=== PATIENT | male | born 1955 | race Caucasian/White ===

== ENCOUNTER 2017-08-17 11:42 | Emergency (ER) | payer OTHER ==
[~2017-08-17] VITALS: Ht 180.3 cm; Wt 89.4 kg
[2017-08-17] MEDS ORDERED: JARDIANCE25 MG PO (12:07)
[2017-08-17] MEDS ORDERED: GLIPIZIDE 10 MG10 MG PO (12:07)
[2017-08-17] MEDS ORDERED: ASPIR 8181 MG PO (12:07)
[2017-08-17] MEDS ORDERED: JANUMET 50-1,01 EACH PO (12:07)
[2017-08-17] MEDS ORDERED: TYLENOL325 MG PO (12:15)
[2017-08-17] MEDS ORDERED: TRAMADOL 50 MG50 MG PO (13:06)
[2017-08-17 13:12] VITALS: BP 133/79
== END 2017-08-17 13:13 | disposition home or self-care (01) ==
LOC: M.ERS 11:42
DX: M79.671 Pain in right foot (principal); I10 Essential (primary) hypertension; E11.9 Type 2 diabetes mellitus without complications; E78.00 Pure hypercholesterolemia, unspecified; Z88.0 Allergy status to penicillin

== ENCOUNTER 2018-06-07 20:54 | Observation (INO) | payer OTHER ==
[~2018-06-07] VITALS: Ht 180.3 cm; Wt 88.0 kg
[~2018-06-07 20:54] MED LIST: AMLODIPINE BESY10 MG PO; ASPIR 8181 M1 PO; ASPIR 8181 MG PO; ATORVASTATIN CA40 MG PO; BRILINTA90 MG PO; COREG6.25 MG PO; GLIPIZIDE 10 MG10 MG PO; JANUMET 50-1,01 EACH PO; JARDIANCE25 MG PO; MICARDIS 20MG T20 M1 PO; NITROGLYCERIN0.4 MG SUBLING; TRAMADOL 50 MG50 MG PO; TYLENOL325 MG PO
[2018-06-07 20:55] VITALS: BP 93/64
[2018-06-07] MEDS ORDERED: BUSPIRONE HCL10 MG PO (21:03)
[2018-06-07] MEDS ORDERED: FISH OIL 1,001000 M2 PO (21:04)
[2018-06-07] MEDS ORDERED: HYDROCHLOROTHIA25 M2 PO (21:04)
[2018-06-07] MEDS ORDERED: CENTRUM SILVER1 EAC2 PO (21:07)
[2018-06-07] MEDS ORDERED: LANTUS SUBQ (21:07)
[2018-06-07 21:18] LABS: ABSOLUTE BASOPHILS 0.1 thou/uL (0.0-0.2); ABSOLUTE EOSINOPHILS 0.6 thou/uL (0.0-0.7); ABSOLUTE LYMPHOCYTES 2.4 thou/uL (0.8-5.3); ABSOLUTE NEUTROPHILS 4.7 thou/uL (1.6-8.1); BASOPHILS 1.4 %; EOSINOPHILS 6.9 %; HEMATOCRIT 40.5 % (42.0-52.0); HEMOGLOBIN 13.9 gm/dL (14.0-18.0); LYMPHOCYTES 27.3 %; MCH 29.7 pg (26.0-34.0); MCHC 34.2 g/dL (28.0-37.0); MCV 86.6 fL (80.0-100.0); MONOCYTES 11.2 %; MPV 7.9 fl. (7.2-11.1); NUCLEATED RBCS 0 /100WBC; PLATELET COUNT* 304 thou/uL (150-400); POLYS 53.2 %; RBC 4.67 mil/uL (4.50-6.00); WBC 8.9 thou/uL (4.0-11.0)
[2018-06-07 21:27] LABS: ANION GAP 10 mmol/L (7-16); BUN 34 mg/dL (7-18); CALCIUM 8.9 mg/dL (8.5-10.1); CHLORIDE 94 mmol/L (98-107); CO2 25 mmol/L (21-32); CREATININE 1.1 mg/dL (0.6-1.3); GLUCOSE 216 mg/dL (70-99); POTASSIUM 3.8 mmol/L (3.5-5.1); SODIUM 129 mmol/L (136-145)
[2018-06-07 21:32] LABS: APTT 25.1 Seconds (25.0-31.3); INR 1.1; PROTIME 11.2 Seconds (9.20-11.50)
[2018-06-07 21:38] LABS: ALBUMIN 3.5 g/dL (3.4-5.0); ALKALINE PHOSPHATASE 82 U/L (46-116); NT-PRO BRAIN NAT PEPTIDE 65 pg/mL (<300); SGOT 47 U/L (15-37); SGPT 105 U/L (30-65); TOTAL BILIRUBIN 0.4 mg/dL (<0.1-1.0); TOTAL PROTEIN 7.6 g/dL (6.4-8.2); TROPONIN-I LEVEL <0.06 ng/mL (<0.06)
[2018-06-07 23:00] VITALS: BP 114/66
[2018-06-07 23:30] VITALS: BP 131/74
--- NOTE | 2018-06-08 04:32 | NUR ---
PT ARRIVED ON UNIT FROM ER AT 2320 ASSISTED TO BED ORIENTED TO SURROUNDINGS VS AND ASSESSMENT STABLE. PT DENIED ANY COMPLAINTS AND SLEPT THROUGH THE NIGHT. NSR ON THE MONITOR. WILL CONTINUE PLAN OF CARE.
[2018-06-08 04:47] VITALS: BP 103/63
[2018-06-08 08:00] VITALS: BP 108/71
--- NOTE | 2018-06-08 08:00 | NUR ---
ASSUMED PT CARE AT 0700, PT LYING IN BED, CALL LIGHT IN REACH, AT BEDSIDE. TOBACCO STRIPPER HAND TRACING SINUS RHYTHM, PT DENIES PAIN OR SOA. PT REMAINS NPO AT THIS TIME, CARDIOLOGY TO CONSULT. WILL CONT POC.
--- NOTE | 2018-06-08 09:10 | NUR ---
Pt is A&O. Resides at home with his . Supportive family that is involved in POC. Normally active and independent. Recently dc from hospital at the end of April post stent placement. No DME. No hx of HH or SNF. Goal is home at dc. Cardiology following.
--- NOTE | 2018-06-08 10:31 | EKG ---
[place] [address] ELECTROCARDIOGRAM REPORT Name: LAWRENCE UNDERWOOD Room: [address]R.#: [id number] Admission: 06/07/18 Attend Phys: Michael Crowell MD Discharge: Date of : 59 Report #: [id number] THIS REPORT FOR: //name// [facility] ED Test Date: 2018-06-07 Test Time: 20:56:29 Pat Name: LAWRENCE UNDERWOOD Department: Room: [facility] Gender: M Netting Weaver: MS : 1955 Requested By: Adenike Nicole Order Number: [id number] MD: Shan Mcintosh Measurements Intervals [place] Rate: 72 P: 23 MT: 183 QRS: 11 QRSD: 102 T: -12 QT: 390 QTc: 427 Interpretive Statements Sinus rhythm Inferior infarct, old Baseline wander in lead(s) III,aVL,aVF Compared to ECG 05/26/2018 08:04:16 no change Electronically Signed On 06-08-2018 10:31:22 EARLY CHILDHOOD ASSISTANT by Shan Mcintosh [email or web address] <ELECTRONICALLY SIGNED> By: Shan Mcintosh MD, FACC 06/08/18 1031 55 55 Shan Mcintosh MD, [facility] /EPI
[2018-06-08 11:19] VITALS: BP 109/70
[2018-06-08 11:30] LABS: ANION GAP 9 mmol/L (7-16); BUN 24 mg/dL (7-18); CALCIUM 9.3 mg/dL (8.5-10.1); CHLORIDE 97 mmol/L (98-107); CO2 26 mmol/L (21-32); CREATININE 0.9 mg/dL (0.6-1.3); GLUCOSE 100 mg/dL (70-99); MAGNESIUM 2.2 mg/dL (1.8-2.4); POTASSIUM 3.7 mmol/L (3.5-5.1); SODIUM 132 mmol/L (136-145); TROPONIN-I LEVEL <0.06 ng/mL (<0.06)
--- NOTE | 2018-06-08 15:02 | EKG ---
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
[2018-06-08 15:32] VITALS: BP 101/55
--- NOTE | 2018-06-08 16:00 | NUR ---
PT DISCHARGED HOME WITH AND NURSING STAFF VIA WHEELCHAIR. IV AND SR VICE PRESIDENT REMOVED, HOURLY ROUNDING COMPLETED. PT EDUCATED ON ALL DISCHARGE INSTRUCTIONS INCLUDING MEDICATIONS AND FOLLOW UP APPTS, PT STATES UNDERSTANDING.
[2018-06-08 17:01] VITALS: BP 101/55
--- NOTE | 2018-06-09 09:28 | CON ---
[address] [address] CONSULTATION Name: LAWRENCE UNDERWOOD Room: [address] Charlette Miller#: [id number] Admission: 06/07/18 Attend Phys: Michael Crowell MD Discharge: 06/08/18 Date of : 59 Report #: [id number] THIS REPORT FOR: //name// CC: Michael Mcintosh Akanksha Dorita RUIZ DATE OF SERVICE: 06/08/2018 HISTORY OF PRESENT ILLNESS: The patient is a 63-year-old white male who I was asked to see in the hospital today after he complained of jaw pain. The patient had no previous history of heart disease. He does have a long history of hypertension, diabetes, and hyperlipidemia. He presented to [facility] on 05/22/2018 with an acute inferior STEMI. I saw him on an emergent basis and performed an urgent cardiac catheterization from the right femoral artery. Arteriogram showed a 99% stenosis distal codominant circumflex, 90% narrowing in the mid LAD, 80% narrowing of the distal PDA of the right coronary artery. Ejection fraction was 60%. I then placed a single drug-eluting stent in the distal circumflex. He returned 3 days later and I electively placed a drug-eluting stent in the mid LAD. In addition to his amlodipine and Lipitor, he was started on Plavix and Coreg. He was also started on Brilinta twice a day. He returned to see my nurse practitioner last week. The patient was felt to be doing well. However, over the weekend the patient developed lightheadedness, his blood pressure was low. He stopped taking his amlodipine. Yesterday, the patient was home, he felt a sharp pain in his jaw, felt some tingling in his left hand, felt a sharp pain in his chest. Denied any shortness of breath, diaphoresis. He called EMS who brought here to [facility] and admitted. He denied any fever, bleeding, palpitation or syncope. PAST MEDICAL HISTORY: He has had no major surgical procedures. CURRENT MEDICATIONS: Amlodipine, which he recently stopped, aspirin, Lipitor, carvedilol, Jardiance, Janumet, Micardis, Brilinta. ALLERGIES: HE HAS AN ALLERGY TO PENICILLIN. FAMILY HISTORY: Negative for heart disease. SOCIAL HISTORY: He is . He and his live in [place]. 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 No smoking. Rarely drinks alcohol. REVIEW OF SYSTEMS: He has had no history of stroke, asthma, peptic ulcer disease, liver disease, kidney disease, cancer, psychiatric illness, [place] [address] CONSULTATION Name: LAWRENCE UNDERWOOD Room: [address] Charlette Miller#: [id number] Admission: 06/07/18 Attend Phys: Michael Crowell MD Discharge: 06/08/18 Date of : 59 Report #: [id number] PHYSICAL EXAMINATION: GENERAL: Revealed a middle-aged male lying in bed. He appeared in no distress. VITAL SIGNS: His blood pressure 110/70, pulse 60. He is afebrile. HEENT: He is anicteric. Conjunctivae pink. Mucous membranes moist. NECK: Veins nondistended. No carotid bruits. Neck supple. CHEST: Clear to auscultation. CARDIAC: Regular rate and rhythm. ABDOMEN: Soft, nontender. EXTREMITIES: Had no edema. Posterior tibial pulse 2+ bilaterally. SKIN: Warm, dry. NEUROLOGIC: Nonfocal. LYMPH: No adenopathy. MUSCULOSKELETAL: No joint effusion. DIAGNOSTIC DATA: His ECG showed a sinus rhythm. There was no ST or T-wave changes noted. His workup in the Emergency Room last night, he had a portable chest x-ray that showed normal heart size, clear lung la. LABORATORY DATA: Sodium 132, creatinine 0.9, glucose 100. His troponin 0.06. White blood cell count 8.9, hemoglobin 13.9. IMPRESSION AND RECOMMENDATIONS: 1. Jaw pain. Atypical for angina. Suspect noncardiac. 2. Tingling of his left hand. No evidence of acute coronary syndrome. 3. Recent stenting of the distal circumflex and left anterior descending. Continue aspirin and Brilinta. 4. Hypertension. Continue beta blockers. Because of low blood pressure I would discontinue Norvasc. 5. Hyperlipidemia. The patient is on a statin drug. 6. Diabetes. At this time, I think it is reasonable to discharge the patient from the hospital. He is scheduled to see me in the clinic in several weeks for followup. <ELECTRONICALLY SIGNED> By: Shan Mcintosh MD, FACC 06/09/18 0928 1532 [id number] Mcintosh MD, FACC /nt
== END 2018-06-08 17:54 | disposition home or self-care (01) ==
LOC: M.ERS 20:54 → M.TBA-ER 22:01 → M.2W 22:01
PROVIDERS: Internal Medicine; Personal Emergency Response Attendant; ADMIT Internal Medicine
DX: I25.118 Atherosclerotic heart disease of native coronary artery with other forms of angina pectoris (principal); I12.9 Hypertensive chronic kidney disease with stage 1 through stage 4 chronic kidney disease, or unspecified chronic kidney disease; E11.22 Type 2 diabetes mellitus with diabetic chronic kidney disease; N18.2 Chronic kidney disease, stage 2 (mild); F32.9 Major depressive disorder, single episode, unspecified; E78.5 Hyperlipidemia, unspecified; E87.1 Hypo-osmolality and hyponatremia; R68.84 Jaw pain; Z79.4 Long term (current) use of insulin; Z79.899 Other long term (current) drug therapy; Z79.82 Long term (current) use of aspirin

== ENCOUNTER → 2018-07-21 | Outpatient (CLI) | payer OTHER ==
[~2018-07-21] MED LIST changes: +BUSPIRONE HCL10 MG PO; +CENTRUM SILVER1 EAC2 PO; +FISH OIL 1,001000 M2 PO; +HYDROCHLOROTHIA25 M2 PO; +LANTUS SUBQ
--- NOTE | 2018-07-21 15:40 | 2DMMODE ---
[place] [address] 2 D/M-MODE ECHOCARDIOGRAM Name: JOSE UNDERWOOD Room: [facility]#: [id number] Admission: 07/21/18 Attend Phys: Nereyda Hawley Discharge: Date of : 59 Date of Service: 07/21/18 1540 Report #: [id number] THIS REPORT FOR: //name// APPROVED REPORT Study performed: 07/21/2018 08:23:09 EXAM: Comprehensive 2D, Doppler, and color-flow Echocardiogram Patient Location: Out-Patient BSA: 2.09 HR: 74 bpm BP: 116/75 mmHg Other Information Study Quality: Good Indications CAD 2D Dimensions IVSd: 10.90 (7-11mm) LVOT Diam: 20.48 (18-24mm) LVDd: 42.21 mm PWd: 10.01 (7-11mm) Ascending Ao: 31.10 (22-36mm) LVDs: 23.46 (25-40mm) Aortic Root: 28.78 mm Volumes Left Atrial Volume (Systole) LA ESV Index: 17.80 mL/m2 Aortic Valve AoV Peak Hieu.: 1.08 m/s AO Peak Gr.: 4.63 mmHg LVOT Max P.18 mmHg AO Mean Gr.: 2.55 mmHg LVOT Mean P.09 mmHg LVOT Max V: 1.02 m/s AO V2 VTI: 20.19 cm LVOT Mean V: 0.66 m/s BRAXTON (VTI): 3.58 cm2 LVOT V1 VTI: 21.96 cm Mitral Valve E/A Ratio: 0.93 MV Decel. Time: 192.69 ms MV E Max Hieu.: 0.59 m/s MV PHT: 55.88 ms MVA (PHT): 3.94 cm2 [place] [address] 2 D/M-MODE ECHOCARDIOGRAM Name: JOSE UNDERWOOD Room: [facility]#: [id number] Admission: 07/21/18 Attend Phys: Nereyda Hawley Discharge: Date of : 59 Date of Service: 07/21/18 1540 Report #: [id number] TDI E/Lateral E': 5.36 E/Medial E': 7.38 Medial E' Hieu.: 0.08 m/s Lateral E' Hieu.: 0.11 m/s Pulmonary Valve PV Peak Hieu.: 0.93 m/s PV Peak Gr.: 3.47 mmHg Left Ventricle The left ventricle is normal size. There is normal LV segmental wall motion. There is normal left ventricular wall thickness. Left ventricular systolic function is normal. LVEF is 55-60%. Transmitral Doppler flow pattern suggests impaired LV relaxation. Right Ventricle The right ventricle is normal size. The right ventricular systolic function is normal. Atria The left atrium size is normal. The right atrium size is normal. Aortic Valve The aortic valve is normal in structure. No aortic regurgitation is present. There is no aortic valvular stenosis. Mitral Valve The mitral valve is normal in structure. There is no mitral valve regurgitation noted. No evidence of mitral valve stenosis. Tricuspid Valve The tricuspid valve is normal in structure. There is no tricuspid valve regurgitation noted. Pulmonic Valve The pulmonary valve is normal in structure. There is no pulmonic valvular regurgitation. Great Vessels The aortic root is normal in size. IVC is normal in size and collapses >50% with inspiration. Pericardium There [place] [address] 2 D/M-MODE ECHOCARDIOGRAM Name: JOSE UNDERWOOD Room: [facility]#: [id number] Admission: 07/21/18 Attend Phys: Nereyda Hawley Discharge: Date of : 59 Date of Service: 07/21/18 1540 Report #: [id number] <Conclusion> The left ventricle is normal size. There is normal left ventricular wall thickness. Left ventricular systolic function is normal. LVEF is 55-60%. Transmitral Doppler flow pattern suggests impaired LV relaxation. IVC is normal in size and collapses >50% with inspiration. <ELECTRONICALLY SIGNED> By: Jose Levine MD, FACC 07/21/18 1540 1540 1540 Jose Levine MD, FACC /INF
== END ==
LOC: M.CRD 08:00
DX: I25.10 Atherosclerotic heart disease of native coronary artery without angina pectoris (principal)

== ENCOUNTER 2019-03-04 23:25 | Emergency (ER) | payer OTHER ==
[~2019-03-04] VITALS: Ht 180.3 cm; Wt 87.1 kg
[2019-03-05] LABS: HEMATOCRIT 40.5 % (42.0-52.0); HEMOGLOBIN 13.8 gm/dL (14.0-18.0); MCH 29.4 pg (26.0-34.0); MCHC 34.1 g/dL (28.0-37.0); MCV 86.2 fL (80.0-100.0); MPV 8.3 fl. (7.2-11.1); NUCLEATED RBCS 0 /100WBC; PLATELET COUNT* 283 thou/uL (150-400); RBC 4.69 mil/uL (4.50-6.00); RDW-CV 13.3 % (10.5-14.5); WBC 10.2 thou/uL (4.0-11.0)
[2019-03-05 00:10] LABS: CALCIUM 9.2 mg/dL (8.5-10.1); CREATININE 1.3 mg/dL (0.6-1.3); POTASSIUM 3.7 mmol/L (3.5-5.1)
[2019-03-05 00:15] LABS: ALBUMIN 3.4 g/dL (3.4-5.0); TOTAL BILIRUBIN 0.3 mg/dL (<0.1-1.0); TOTAL PROTEIN 7.6 g/dL (6.4-8.2)
[2019-03-05] MEDS ORDERED: PROAIR HFA8.5 GM INH (00:27)
[2019-03-05] MEDS ORDERED: MEDROLDOSEPACK PO (00:27)
[2019-03-05] MEDS ORDERED: ZPAK PO ×2 (00:27→00:48)
[2019-03-05 00:28] LABS: ABSOLUTE EOSINOPHILS 1.7 thou/uL (0.0-0.7); ABSOLUTE LYMPHOCYTES 3.4 thou/uL (0.8-5.3); ABSOLUTE MONOCYTES 1.3 thou/uL (0.0-1.2); ABSOLUTE NEUTROPHILS 3.8 thou/uL (1.6-8.1); PLATELET ESTIMATE ADEQUATE
[2019-03-05 00:29] LABS: TOXIC GRANULATION 1+
[2019-03-05 00:40] VITALS: BP 123/68
== END 2019-03-05 00:40 | disposition home or self-care (01) ==
LOC: M.ERS 23:25
PROVIDERS: Personal Emergency Response Attendant
DX: J20.9 Acute bronchitis, unspecified (principal); I10 Essential (primary) hypertension; E11.9 Type 2 diabetes mellitus without complications; E78.00 Pure hypercholesterolemia, unspecified; I25.10 Atherosclerotic heart disease of native coronary artery without angina pectoris; Z88.0 Allergy status to penicillin; Z95.5 Presence of coronary angioplasty implant and graft; Z79.4 Long term (current) use of insulin

== ENCOUNTER 2019-06-16 05:50 | Observation (INO) | payer OTHER ==
[2019-06-16] VITALS (8 sets, daily range): BP systolic 111–148; BP diastolic 61–79
[~2019-06-16] VITALS: Ht 180.3 cm; Wt 89.3 kg
[~2019-06-16 05:50] MED LIST changes: -ATORVASTATIN CA40 MG PO; +LIPITOR40 MG PO; +MEDROLDOSEPACK PO; +PROAIR HFA8.5 GM INH; +ZPAK PO
[2019-06-16 06:22] LABS: HEMATOCRIT 40.1 % (42.0-52.0); HEMOGLOBIN 13.8 gm/dL (14.0-18.0); MCH 29.5 pg (26.0-34.0); MCHC 34.4 g/dL (28.0-37.0); MCV 85.7 fL (80.0-100.0); MPV 8.4 fl. (7.2-11.1); NUCLEATED RBCS 0 /100WBC; PLATELET COUNT* 294 thou/uL (150-400); RBC 4.68 mil/uL (4.50-6.00); RDW-CV 13.7 % (10.5-14.5); WBC 8.6 thou/uL (4.0-11.0)
[2019-06-16 06:29] LABS: CALCIUM 9.1 mg/dL (8.5-10.1); CREATININE 1.1 mg/dL (0.6-1.3); POTASSIUM 3.9 mmol/L (3.5-5.1)
[2019-06-16 06:31] LABS: PROTIME 10.3 Seconds (9.20-11.50)
[2019-06-16 06:40] LABS: ALBUMIN 3.4 g/dL (3.4-5.0); TOTAL BILIRUBIN 0.3 mg/dL (<0.1-1.0); TOTAL PROTEIN 7.4 g/dL (6.4-8.2)
--- NOTE | 2019-06-16 07:00 | NUR ---
RECIEVED REPORT AND ASSUMED CARE OF PT.
[2019-06-16 07:15] LABS: ABSOLUTE BASOPHILS 0.1 thou/uL (0.0-0.2); ABSOLUTE EOSINOPHILS 0.7 thou/uL (0.0-0.7); ABSOLUTE NEUTROPHILS 4.8 thou/uL (1.6-8.1)
[2019-06-16 07:16] LABS: PLATELET ESTIMATE ADEQUATE
--- NOTE | 2019-06-16 10:04 | NUR ---
DR GONZALEZ WITH PT AT THIS TIME.
--- NOTE | 2019-06-16 10:26 | NUR ---
PT TAKEN TO BRUSH TRIMMING MACHINE SETTER AT THIS TIME.
--- NOTE | 2019-06-16 18:43 | NUR ---
PT ARRIVED TO UNIT AT 1400 VIA BED. RIGHT GROIN CATH SITE DRESSING CLEAN, DRY, AND INTACT. PT OFF OF BEDREST AT 1800. STRATEGIC ALLIANCES MANAGER IN PLACE, TRACING SR. HOURLY ROUNDING COMPETED. IV FLUIDS INFUSING. CALL LIGHT WITHIN REACH.
[2019-06-17] VITALS: BP 123/58
[2019-06-17 04:00] VITALS: BP 103/57
--- NOTE | 2019-06-17 04:46 | NUR ---
PT SLEPT MOST OF SHIFT. ASSESSMENT DOCUMENTED. MEDS GIVEN PER E-JUN. IV PATENT, FLUIDS INFUSING. RIGHT GROIN SITE REMAINED C/D/I. PT REPORTS PAIN HAS IMPROVED WITH TYLENOL. WILL CONTINUE WITH PLAN OF CARE.
[2019-06-17 08:00] VITALS: BP 111/72
[2019-06-17 10:34] LABS: HEMOGLOBIN 12.8 gm/dL (14.0-18.0); MCH 29.2 pg (26.0-34.0); MCHC 33.7 g/dL (28.0-37.0); MCV 86.6 fL (80.0-100.0); MPV 8.6 fl. (7.2-11.1); RBC 4.39 mil/uL (4.50-6.00); RDW-CV 13.7 % (10.5-14.5); WBC 7.5 thou/uL (4.0-11.0)
[2019-06-17 10:54] LABS: CALCIUM 8.5 mg/dL (8.5-10.1); POTASSIUM 4.1 mmol/L (3.5-5.1)
[2019-06-17 10:55] LABS: TROPONIN-I LEVEL 1.07 ng/mL (<0.06)
--- NOTE | 2019-06-17 11:08 | EKG ---
[place] [address] ELECTROCARDIOGRAM REPORT Name: JOSE UNDERWOOD Room: [address] M.R.#: [id number] Admission: 06/16/19 Attend Phys: Roberto Charlton Discharge: Date of : 59 Date of Service: 06/16/19 0557 Report #: [id number] THIS REPORT FOR: //name// [facility] ED Test Date: 2019-06-16 Test Time: 05:57:09 Pat Name: JOSE UNDERWOOD Department: Room: [facility] Gender: M Malt Loader: GISELLA : 1955 Requested By: Marci Tidwell Order Number: [id number] MD: Jose Levine Measurements Intervals [place] Rate: 67 P: 34 CT: 195 QRS: 24 QRSD: 95 T: 46 QT: 383 QTc: 405 Interpretive Statements Sinus rhythm Compared to ECG 06/08/2018 10:37:54 No significant changes Electronically Signed On 06-17-2019 11:07:46 WARP SPOOLER by Jose Levine [email or web address] <ELECTRONICALLY SIGNED> By: Jose Levine MD, [facility] 06/17/19 1107 0557 0557 Jose Levine MD, [facility] /EPI
--- NOTE | 2019-06-17 11:15 | EKG ---
[place] [address] ELECTROCARDIOGRAM REPORT Name: JOSE UNDERWOOD Room: [address] M.R.#: [id number] Admission: 06/16/19 Attend Phys: Roberto Charlton Discharge: Date of : 59 Date of Service: 06/16/19 1249 Report #: [id number] THIS REPORT FOR: //name// [facility] Test Date: 2019-06-16 Test Time: 12:49:54 Pat Name: JOSE UNDERWOOD Department: Room: [address] Gender: M Hand Chain Maker: : 1955 Requested By: Chuy Reeves Order Number: [id number] Azael MD: Jose Levine Measurements Intervals [place] Rate: 67 P: 53 [place]: 205 QRS: 45 QRSD: 94 T: 59 QT: 384 QTc: 406 Interpretive Statements Sinus rhythm Compared to ECG 06/08/2018 10:37:54 No significant changes Electronically Signed On 06-17-2019 11:14:09 DIRECTOR OF MANUFACTURING by Jose Levine [email or web address] <ELECTRONICALLY SIGNED> By: Jose Levine MD, [facility] 06/17/19 1114 1249 1249 Jose Levine MD, FAC /EPI
--- NOTE | 2019-06-17 11:19 | EKG ---
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: [email or web address] : 1955 Requested By: Chuy Reeves Order Number: [id number] Azael MD: Jose Levine Measurements Intervals [place] Rate: 71 P: 44 [place]: 197 QRS: 33 QRSD: 94 T: 58 QT: 383 QTc: 417 Interpretive Statements Sinus rhythm Compared to ECG 06/08/2018 10:37:54 No significant changes Electronically Signed On 06-17-2019 11:18:36 PRESIDENT SALES AND MARKETING by Jose Levine [email or web address] <ELECTRONICALLY SIGNED> By: Jose Levine MD, [facility] 06/17/19 1118 0416 0416 Jose Levine MD, [facility] /EPI
[2019-06-17 12:00] VITALS: BP 115/66
--- NOTE | 2019-06-17 15:03 | NUR ---
ASSUMED PT CARE AT 0700. PT VOICED NO CONCERNS THIS SHIFT. SR ON CELLULAR EQUIPMENT REPAIRER. HOURLY ROUNDING COMPLETED. DISCHARGE ORDERS RECEIVED FROM DR. GONZALEZ. DISCHARGE INSTRUCTIONS REVIEWED WITH PATIENT, INCLUDING F/U APPOINTMENT. PT VERBALIZED UNDERSTANDING. PT ESCORTED OUT VIA WHEELCHAIR. HOME IN PRIVATE VEHICLE.
--- NOTE | 2019-06-18 11:17 | CARD ---
[address] [address] CARDIAC CATH REPORT Name: LAWRENCE UNDERWOOD Room: [address] Charlette Miller#: [id number] Admission: 06/16/19 Attend Phys: Chuy Reeves MD, Discharge: 06/17/19 Date of : 59 Report #: [id number] THIS REPORT FOR: //name// cc: Shan Mcintosh MD [facility] Shan Mcintosh MD [facility] ~ THIS REPORT FOR: //name// APPROVED REPORT Study performed: 06/16/2019 10:03:54 Patient Details Patient Status: ED Room #: 15 The patient is a 64 year-old male Event Personnel Chuy Reeves Sawmilling Operator, Esperanza Jay RN RN, Will Eden EXPRESS CLERK Monitor, Jeferson West RTR Scrub, Chuy Reeves Social Services Coordinator Procedures Performed Right Femoral Artery access, Left Heart Catheterization, ALE and Athrectomy LAD Artery, Hemostasis with Angioseal Indication Unstable angina Risk Factors Hypercholesterolemia, Hypertension Admission/Lab Medications/Medications given during procedure Oxygen Nasal cannula 2 l per min, Fentanyl IV 25 mcg, Midazolam (Versed) IV 2 mg, Lidocaine Subcut 14 ml, Angiomax IV bolus 13.5 ml, Angiomax Drip IV 32 ml per hr, Nitroglycerin IC 150 mcg, Ticagrelor PO 90 mg Procedure Narrative The patient was brought electively to the Cardiac Catheterization Laboratory and was prepped and draped in a sterile manner. The right femoral was infiltrated with 2% Lidocaine subcutaneous anesthesia. A [place] 6 FR sheath was inserted into the right femoral artery. Coronary angiography was performed using coronary diagnostic catheters. The right coronary system was accessed and visualized with a Diagnostic - JR4 catheter. The left coronary system was accessed and visualized with a Diagnostic - JL4 catheter[place] [address] CARDIAC CATH REPORT Name: LAWRENCE UNDERWOOD Room: [address] M..#: [id number] Admission: 06/16/19 Attend Phys: Chuy Reeves MD, Discharge: 06/17/19 Date of : 59 Report #: [id number] was accessed and visualized with a Diagnostic - STR PIG catheter. Left ventricular/Aortic Valve gradient assessed via catheter pullback. Left ventriculogram was performed in [place] projection. Pre-demployment femoral angiogram was performed . Closure device was deployed with a Fr Angioseal STS 6Fr. The patient tolerated the procedure well and there were no complications associated with the procedure. There was no hematoma. Intraoperative Conscious Sedation Sedation start time: 1038 Case end Time: 1142 Fentanyl 25 mcg Versed 2 mg Fluoro Time: 19.8 minutes Dose: DAP 454802 cGycm2 3011 mGy Contrast Type and Amount: Visipaque 350 ml Coronary Angiography The patient's coronary anatomy is right dominant. Diagnostic Cath Left Main 0% narrowing LAD 80% mid LAD in-stent restenosis with 80% narrowing just distal to the stent Circumflex 40% mid vessel narrowing Right Coronary 30% proximalmid vessel narrowing in this dominant vessel Left Ventriculography The left ventricle is normal in size with normal contractility. The left ventricular ejection fraction is estimated to be 65%. Left ventricular wall motion abnormalities are not present. There is no mitral insufficiency. IVUS Findings AngioSculpt PTCA 2.0X10mm Hemodynamics The aortic pressure is 112/60 mmHg with a mean of 82 mmHg. The left ventricular pressure is 110/2 mmHg with a mean of mmHg. The left ventricular end diastolic pressure is 11 mmHg. There was no gradient across the aortic valve upon pullback. PCI Technique Lesion Anticoagulation was achieved with Angiomax. Patient was preloaded with Angiomax IV 13.5 ml. Percutaneous [place] [address] CARDIAC CATH REPORT Name: LAWRENCE UNDERWOOD Room: [address]#: [id number] Admission: 06/16/19 Attend Phys: Chuy Reeves MD, Discharge: 06/17/19 Date of : 59 Report #: [id number] performed on the mid left anterior descending artery segment. The lesion stenosis prior to intervention was 80% with LEILANI 3 flow. A 6F XB LAD 3.5 Guide Catheter was used to engage the ostium. A IG: ProwaterFlex 180CM Interventional Guidewire was used to cross the lesion. BALLOON DILATION A Balloon catheter NC Trek RX 2.25x12 was inserted and inflated up to 14.00atm for 9seconds. Additional Inflation: 16.00atm for 12seconds. Additional Inflation: 17.00atm for 5seconds. 18 TETO FOR 10 SEC; 2.0 x 10 mm angiosculpt inflated to 14-16 teto STENT DEPLOYMENT A drug-eluting stent Adam RX Stent 2.0X30mm,2.25x12 was inserted and inflated up to 14atm for seconds. POST STENT DEPLOYMENT BALLOON DILATION A Balloon catheter NC Trek RX 2.25x12 was inserted and inflated up to 16atm for 15seconds. Final angiography reveals 10 % stenosis with LEILANI 3 flow. COMMENTS BMW REJI WIRE UTILIZED BALLOON DILATION A Balloon catheter AngioSculpt PTCA 2.0X10mm was inserted and inflated up to 12.00atm for 17seconds. Additional Inflation: 10.00atm for 15seconds. Additional Inflation: 10.00atm for 12seconds. STENT DEPLOYMENT A stent Bristol RX Stent 2.0X30mm was inserted and inflated up to 16.00atm for 14seconds. Additional Inflation: 18.00atm for 8seconds. POST STENT DEPLOYMENT BALLOON DILATION A Balloon catheter NC Trek RX 2.25x12 was inserted and inflated up to 14.00atm for 9seconds. Additional Inflation: 16.00atm for 8seconds. Additional Inflation: 20.00atm for 14seconds. Stent Deployment A stent Bristol RX Stent 2.19P42fa was inserted and inflated up to 14atm for 6seconds. Additional Inflation: 17atm for 9seconds. [address] [address] CARDIAC CATH REPORT Name: LAWRENCE UNDERWOOD Room: [address] Charlette Miller#: [id number] Admission: 06/16/19 Attend Phys: Chuy Reeves MD, Discharge: 06/17/19 Date of : 59 Report #: [id number] Conclusion #1 significant coronary artery disease characterized by the following A 80% mid LAD in-stent restenosis with 80% narrowing just beyond the stent B 40% mid circumflex narrowing C 30% proximalmid right coronary narrowing, this being a dominant vessel #2 normal left ventricular systolic function, estimated ejection fraction 65% #3 normal left-sided hemodynamic study 4 successful angioplasty atherotomy/atherectomy and deployment of sequential drug-eluting stents at the site of 80% mid LAD stenosis with 10% residual narrowing and LEILANI 3 flow to the distal vessel Recommendations Cardiac Risk Reduction Program Aggressive Medical Therapy Medications Administered Aspirin (any) Ticagrelor Diagnostic Cath Approved by: Chuy Reeves MD Date/Time: 06/18/2019 11:12:14 <ELECTRONICALLY SIGNED> By: Chuy Reeves MD, [facility] 06/18/19 1116 1116 [id number] Reeves MD, FAC /INF
--- NOTE | 2019-06-18 11:30 | CON ---
[address] [address] CONSULTATION Name: YASMINELAWRENCE FUENTES Room: [address] Charlette Miller#: [id number] Admission: 06/16/19 Attend Phys: Chuy Reeves MD, Discharge: 06/17/19 Date of : 59 Report #: [id number] THIS REPORT FOR: //name// cc: Shan Mcintosh MD [facility] Shan Mcintosh MD [facility] ~ THIS REPORT FOR: //name// CC: Shan Broussarda Yaw DATE OF SERVICE: 06/16/2019 HISTORY OF PRESENT ILLNESS: The patient is a 64-year-old male with a history of coronary artery disease, 1 year and 1 month status post inferolateral infarction interrupted by stenting of the distal circumflex with subsequent stenting of the mid LAD 3 days later. In the current year, he has had 6 episodes of discomfort precipitating evaluations. On all occasions, he was felt to have somewhat atypical pain and no recatheterization was performed. Today, he awakened with nausea and diaphoresis, but without arm or chest discomfort. The symptoms were similar to his prior ischemic syndrome. He took 2 sublingual nitroglycerin tablets with some amelioration of his symptoms, but no clear total relief. He is quite comfortable at present in the ER. The patient has a history of hyperlipidemia, type 2 diabetes, and bilateral carotid stenosis. MEDICATIONS: Include: 1. Aspirin. 2. Atorvastatin. 3. Carvedilol. 4. Jardiance. 5. Janumet. 6. Micardis. 7. Ticagrelor. PAST MEDICAL HISTORY: Remarkable for diabetes and hyperlipidemia. SOCIAL HISTORY: He is a nonsmoker. PHYSICAL EXAMINATION: GENERAL: Reveals a mildly distressed middle-aged male. VITAL SIGNS: Blood pressure is 130/70, pulse rate 74, respirations are 18 [place] [address] CONSULTATION Name: LAWRENCE UNDERWOOD Room: [address]#: [id number] Admission: 06/16/19 Attend Phys: Chuy Reeves MD, Discharge: 06/17/19 Date of : 59 Report #: [id number] NECK: Jugular venous pressure is normal. CHEST: Clear. CARDIAC: Reveals normal first and second heart sounds without rubs, murmurs or gallops. ABDOMEN: Mildly obese. EXTREMITIES: Without edema with intact femoral, pedal and radial pulses. IMPRESSION: 1. Recurrent symptoms similar to his prior ischemic syndrome compatible with an unstable ischemic syndrome. 2. Coronary artery disease. 3. Status post prior myocardial infarction. 4. Status post prior stenting of the circumflex and left anterior descending. 5. Diabetes. 6. Hyperlipidemia. RECOMMENDATIONS: Given the aforementioned clinical scenario, I would recommend recatheterization to document current coronary anatomy and prospects for subsequent therapy. This has been discussed with the patient and family. We will plan to proceed with cardiac catheterization urgently on 06/16/2019. Clinical care time is 35 minutes from 09:45 to 10:20 on 06/16/2019. <ELECTRONICALLY SIGNED> By: Chuy Reeves MD, [facility] 06/18/19 1130 1021 1319Jomelia Reeves MD, [facility] /nt
--- NOTE | 2019-06-18 11:31 | D ---
[address] [address] DISCHARGE SUMMARY Name: LAWRENCE UNDERWOOD Room: [address] Charlette Miller#: [id number] Admission: 06/16/19 Attend Phys: Chuy Reeves MD, Discharge: 06/17/19 Date of : 59 Report #: [id number] THIS REPORT FOR: //name// cc: Shan Mcintosh MD [facility] Shan Mcintosh MD [facility] ~ THIS REPORT FOR: //name// CC: Shan Reeves DATE OF SERVICE: 06/16/2019 FINAL DISCHARGE DIAGNOSES: 1. Unstable angina. 2. Status post recent myocardial infarction. 3. Status post prior stenting of the circumflex and LAD. 4. Status post atherectomy with stenting of the mid LAD. 5. Diabetes. 6. Hyperlipidemia. PROCEDURES: On 06/16/2019 -- left heart catheterization, left ventriculography, selective coronary arteriography and atherectomy with stenting of the mid LAD. The patient is a 64-year-old male with a history of relatively recent inferoposterior infarction interrupted by stenting of the distal circumflex. He underwent subsequent stenting of the mid LAD. Over the ensuing several months, he has had several presentations with chest pain, both ER and to the [facility]. No recatheterization was performed and there was no evidence for acute myocardial injury. He presented on 06/16 with recurrent chest pain and nausea and malaise as typical of his syndrome. He felt prior to his infarct several months ago. In this context, and with known diabetes and hyperlipidemia, I recommended recatheterization. This revealed a widely patent distal circumflex stent with approximately 75% LAD narrowing beyond the previously stented site with approximately 70-75% narrowing within the stented region of the mid LAD. I elected to perform arthrotomy/atherectomy with stenting of the mid LAD with no significant residual narrowing following stent deployment and LEILANI 3 flow of the distal vessel. Troponin tito minimally to 1.07. He did well post-procedurally and ambulated in the hallways without difficulty with good hemostasis at the femoral site of catheterization. Laboratory on 06/17/2019 revealed a sodium 137, potassium 3.9, BUN 20, creatinine 1.1, glucose 170, hemoglobin 13.8, white blood cell count 8600 with 294,000 [place] [address] DISCHARGE SUMMARY Name: LAWRENCE UNDERWOOD Room: [address] Paul#: [id number] Admission: 06/16/19 Attend Phys: Chuy Reeves MD, Discharge: 06/17/19 Date of : 59 Report #: [id number] The patient ambulated in the hallways without difficulty. DISCHARGE MEDICATIONS: He was discharged to home on the following medications: Aspirin 81 mg daily, atorvastatin 80 mg daily, carvedilol 6.25 mg b.i.d., fish oil 1000 mg daily, Jardiance 25 mg at bedtime, hydrochlorothiazide 25 mg daily, Lantus insulin 40 units at bedtime, multivitamins with minerals, Centrum Silver 1 tablet daily, Janumet one tablet b.i.d. to be resumed on 06/18/2019, telmisartan 80 mg daily and Brilinta 90 mg b.i.d., acetaminophen p.r.n. pain, albuterol 2 puffs q.4-6 hours p.r.n., buspirone 10 mg daily p.r.n., and p.r.n. sublingual nitroglycerin. He is scheduled to return to see our nurse practitioner in 10 days with subsequent physician followup in approximately 6 weeks. <ELECTRONICALLY SIGNED> By: Chuy Reeves MD, [facility] 06/18/19 1131 1242 1403Chuy Reeves MD, [facility]ACC /nt
== END 2019-06-17 15:00 | disposition home or self-care (01) ==
LOC: M.ERS 05:50 → M.CL 05:50 → M.ERS 10:27 → M.TBA-CV 13:18 → M.2W 13:18
PROVIDERS: Emergency Medicine; ADMIT Internal Medicine
DX: I25.110 Atherosclerotic heart disease of native coronary artery with unstable angina pectoris (principal); R11.2 Nausea with vomiting, unspecified; I10 Essential (primary) hypertension; E11.9 Type 2 diabetes mellitus without complications; E78.00 Pure hypercholesterolemia, unspecified; I25.2 Old myocardial infarction; T82.855A Stenosis of coronary artery stent, initial encounter; Y83.8 Other surgical procedures as the cause of abnormal reaction of the patient, or of later complication, without mention of misadventure at the time of the procedure; Y92.89 Other specified places as the place of occurrence of the external cause

== ENCOUNTER → 2019-06-30 | Outpatient (CLI) | payer OTHER ==
[2019-06-30 09:00] LABS: CHOLESTEROL 112 mg/dL (<200); HDL CHOLESTEROL 38 mg/dL (>40); LDL CHOLESTEROL 66 mg/dL (<100); TC:HDL 2.9 Ratio (Not establshd); TRIGLYCERIDE 41 mg/dL (<150); VLDL 8 mg/dL (<40)
[2019-06-30 09:04] LABS: SERUM ASSESSMENT Clear
== END ==
LOC: M.LAB 08:16
PROVIDERS: Registered Nurse
DX: I25.10 Atherosclerotic heart disease of native coronary artery without angina pectoris (principal); E78.5 Hyperlipidemia, unspecified

== ENCOUNTER 2020-01-20 14:57 | Observation (INO) | payer OTHER ==
[~2020-01-20] VITALS: Ht 180.3 cm; Wt 84.6 kg
[2020-01-20 15:04] VITALS: BP 161/85
[2020-01-20 15:59] LABS: ABSOLUTE BASOPHILS 0.1 thou/uL (0.0-0.2); ABSOLUTE EOSINOPHILS 0.8 thou/uL (0.0-0.7); ABSOLUTE LYMPHOCYTES 2.5 thou/uL (0.8-5.3); ABSOLUTE MONOCYTES 1.1 thou/uL (0.0-1.2); ABSOLUTE NEUTROPHILS 3.9 thou/uL (1.6-8.1); BASOPHILS 1.1 %; EOSINOPHILS 9.1 %; HEMATOCRIT 41.8 % (42.0-52.0); HEMOGLOBIN 14.3 gm/dL (14.0-18.0); LYMPHOCYTES 29.5 %; MCH 29.2 pg (26.0-34.0); MCHC 34.3 g/dL (28.0-37.0); MCV 85.1 fL (80.0-100.0); MONOCYTES 13.4 %; MPV 7.5 fl. (7.2-11.1); NUCLEATED RBCS 0 /100WBC; PLATELET COUNT* 314 thou/uL (150-400); POLYS 46.9 %; RBC 4.91 mil/uL (4.50-6.00); RDW-CV 13.4 % (10.5-14.5); WBC 8.4 thou/uL (4.0-11.0)
[2020-01-20 16:08] LABS: CALCIUM 9.9 mg/dL (8.5-10.1); POTASSIUM 3.9 mmol/L (3.5-5.1)
[2020-01-20 16:16] LABS: ALBUMIN 3.8 g/dL (3.4-5.0); TOTAL BILIRUBIN 0.4 mg/dL (<0.1-1.0); TOTAL PROTEIN 8.1 g/dL (6.4-8.2)
[2020-01-20 19:50] VITALS: BP 135/75
[2020-01-20 19:57] VITALS: BP 147/80
[2020-01-20 21:44] LABS: POTASSIUM 3.7 mmol/L (3.5-5.1)
[2020-01-20 21:45] LABS: CALCIUM 9.4 mg/dL (8.5-10.1); CREATININE 1.3 mg/dL (0.6-1.3)
[2020-01-20 22:56] VITALS: BP 125/79
[2020-01-21 04:00] VITALS: BP 112/71
[2020-01-21 08:00] VITALS: BP 151/91
--- NOTE | 2020-01-21 10:08 | EKG ---
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
--- NOTE | 2020-01-21 10:15 | EKG ---
[place] [address] ELECTROCARDIOGRAM REPORT Name: LAWRENCE UNDERWOODDENNISE [address]#: [id number] Admission: 01/20/20 Attend Phys: Dawson Leon Discharge: Date of : 59 Date of Service: 01/21/20 0559 Report #: [id number] THIS REPORT FOR: //name// 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
[2020-01-21 11:48] VITALS: BP 113/68
--- NOTE | 2020-01-22 10:17 | CON ---
[address] [address] CONSULTATION Name: LAWRENCE UNDERWOOD Room: [address] Charlette Miller#: [id number] Admission: 01/20/20 Attend Phys: José Miguel Leos Discharge: 01/21/20 Date of : 59 Report #: [id number] THIS REPORT FOR: //name// cc: Physician not on staff Physician not on staff ~ THIS REPORT FOR: //name// CC: LAWRENCE JULES Physician staff Dawson Leon DATE OF SERVICE: 01/21/2020 HISTORY OF PRESENT ILLNESS: The patient is a 64-year-old white male who I was asked to see in the hospital today after he complained of chest pain. The patient has an extensive past medical history. His first heart catheterization was in 04/2018 and he was found to have a 90% narrowing of the LAD, 80% narrowing of the circumflex, and 99% stenosis of the distal circumflex. I then placed drug-eluting stents in the circumflex and 3 days later I placed a drug-eluting stent in the LAD. months later in 10/2018, he had some chest pain and was admitted to [facility] in [place] and had a stress test and told there was no evidence of ischemia. He had another heart catheterization by Dr. Chuy Reeves in May of this year and had an 80% narrowing in the LAD. The circumflex stent had no restenosis. Dr. Reeves then placed a new stent in his LAD and he was placed on Brilinta. He notes in June, he had a cough and was placed on antibiotics. He works out on a daily basis and denies recent chest pain, shortness of breath, palpitations, or syncope. The patient states that yesterday, he felt a discomfort in his abdomen and had some belching. He took some antacids which did not seem to help. He actually took a nitroglycerin. He also noticed some pain in his left shoulder and arm. Denied diaphoresis or nausea. He has had no recent bleeding, trauma to his chest or rash. He finally drove himself to the Emergency Room and was admitted for further evaluation and treatment. Of note, in the Emergency Room, he tested positive for COVID-19. He denies any recent loss of taste or smell. PAST MEDICAL HISTORY: Significant for no surgical procedures. He has a history of bronchitis, hyperlipidemia, hypertension, and diabetes. MEDICATIONS: On admission consist of albuterol inhaler, aspirin, Lipitor, BuSpar, carvedilol, Jardiance, hydrochlorothiazide, insulin, metformin, Micardis, Brilinta. ALLERGIES: HE HAS AN ALLERGY TO PENICILLIN. FAMILY HISTORY: [place] [address] CONSULTATION Name: LAWRENCE UNDERWOOD Room: [address] Charlette Miller#: [id number] Admission: 01/20/20 Attend Phys: José Miguel Leos Discharge: 01/21/20 Date of : 59 Report #: [id number] SOCIAL HISTORY: He is . He and his live in [place]. He actually sees a physician at the base in [place], [place]. No smoking. Does not use alcohol anymore. He was in the . 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 REVIEW OF SYSTEMS: He has had no history of stroke, liver disease, GI bleeding, kidney disease, cancer, psychiatric illness, or chronic skin condition. PHYSICAL EXAMINATION: GENERAL: Revealed a middle-aged male, who appeared in no distress. VITAL SIGNS: He had a blood pressure of 130/80, pulse 70, he was afebrile. HEENT: He was anicteric. Conjunctivae pink. Mucous membranes moist. NECK: Veins do not appear distended. No carotid bruits. CHEST: Clear to auscultation. CARDIOVASCULAR: Regular rate and rhythm. No murmurs. ABDOMEN: Soft. EXTREMITIES: Had no edema. Dorsalis pedis pulse 2+ bilaterally. SKIN: Cool and dry. NEUROLOGIC: Nonfocal. LYMPH: No adenopathy. MUSCULOSKELETAL: No joint effusion. DIAGNOSTIC DATA: His ECG on admission yesterday afternoon showed a sinus rhythm. There was no ST or T-wave change noted. His workup in the Emergency Room, he had a portable chest x-ray, normal heart size, and clear lung la. LABORATORY WORK: Sodium 133, potassium 3.7, BUN 23, creatinine 1.3. Liver function studies were normal. Troponins all 0.06. His cholesterol in June was 112, triglycerides 41, HDL 38, LDL 66. White blood cell count 8.4, hemoglobin 14.3. Again, COVID antigen stat test was positive yesterday. IMPRESSION AND RECOMMENDATIONS: 1. Chest pain. Atypical for angina. There was acute coronary syndrome. I would continue aspirin and . 2. Diabetes. 3. Hypertension. The patient is on a beta lorene, diuretic and ARB. 4. Hyperlipidemia. The patient is on a statin drug. 5. Positive test for COVID-19. Minimal symptoms. Recommend that he isolate for 2 weeks. 6. History of bronchitis. <ELECTRONICALLY SIGNED> By: Shan Mcintosh MD, [facility] 01/22/20 1017 0833 0855David Zenia Mcintosh MD, [facility] /nt
== END 2020-01-21 12:30 | disposition home or self-care (01) ==
LOC: M.ERS 14:57 → M.2W 16:36 → M.TBA-ER 16:36 → M.2W 19:47
PROVIDERS: Emergency Medicine Emergency Medical Services; ADMIT Internal Medicine; ATTEND Internal Medicine
DX: U07.1 COVID-19 (principal); I24.9 Acute ischemic heart disease, unspecified; I10 Essential (primary) hypertension; E78.5 Hyperlipidemia, unspecified; E11.9 Type 2 diabetes mellitus without complications; E87.1 Hypo-osmolality and hyponatremia; I25.10 Atherosclerotic heart disease of native coronary artery without angina pectoris; K21.9 Gastro-esophageal reflux disease without esophagitis; I25.2 Old myocardial infarction; Z95.818 Presence of other cardiac implants and grafts; Z79.82 Long term (current) use of aspirin; Z79.4 Long term (current) use of insulin; Z79.899 Other long term (current) drug therapy

== ENCOUNTER 2020-03-06 14:42 | Observation (INO) | payer OTHER ==
[~2020-03-06] VITALS: Ht 180.3 cm; Wt 85.0 kg
[2020-03-06 15:30] LABS: ABSOLUTE BASOPHILS 0.1 thou/uL (0.0-0.2); ABSOLUTE EOSINOPHILS 0.7 thou/uL (0.0-0.7); ABSOLUTE LYMPHOCYTES 2.4 thou/uL (0.8-5.3); ABSOLUTE MONOCYTES 1.1 thou/uL (0.0-1.2); ABSOLUTE NEUTROPHILS 4.5 thou/uL (1.6-8.1); BASOPHILS 0.9 %; EOSINOPHILS 7.8 %; HEMATOCRIT 41.3 % (42.0-52.0); HEMOGLOBIN 13.9 gm/dL (14.0-18.0); LYMPHOCYTES 27.7 %; MCH 29.3 pg (26.0-34.0); MCHC 33.7 g/dL (28.0-37.0); MCV 86.8 fL (80.0-100.0); MONOCYTES 12.2 %; MPV 7.8 fl. (7.2-11.1); NUCLEATED RBCS 0 /100WBC; PLATELET COUNT* 311 thou/uL (150-400); POLYS 51.4 %; RBC 4.76 mil/uL (4.50-6.00); RDW-CV 13.8 % (10.5-14.5); WBC 8.7 thou/uL (4.0-11.0)
[2020-03-06 15:34] LABS: CALCIUM 9.4 mg/dL (8.5-10.1); CREATININE 1.2 mg/dL (0.6-1.3); POTASSIUM 3.8 mmol/L (3.5-5.1)
[2020-03-06 15:45] LABS: ALBUMIN 3.8 g/dL (3.4-5.0); MAGNESIUM 2.1 mg/dL (1.8-2.4); TOTAL BILIRUBIN 0.3 mg/dL (<0.1-1.0); TOTAL PROTEIN 8.4 g/dL (6.4-8.2)
[2020-03-06 21:15] VITALS: BP 140/84
[2020-03-06 22:00] VITALS: BP 107/77
[2020-03-07] VITALS: BP 122/74
[2020-03-07 04:00] VITALS: BP 107/63
[2020-03-07 04:39] LABS: ABSOLUTE BASOPHILS 0.1 thou/uL (0.0-0.2); ABSOLUTE EOSINOPHILS 0.7 thou/uL (0.0-0.7); ABSOLUTE MONOCYTES 0.9 thou/uL (0.0-1.2); ABSOLUTE NEUTROPHILS 2.9 thou/uL (1.6-8.1); BASOPHILS 0.9 %; CALCIUM 9.2 mg/dL (8.5-10.1); EOSINOPHILS 8.9 %; HEMATOCRIT 40.7 % (42.0-52.0); HEMOGLOBIN 13.7 gm/dL (14.0-18.0); LYMPHOCYTES 39.1 %; MCH 29.1 pg (26.0-34.0); MCHC 33.7 g/dL (28.0-37.0); MCV 86.2 fL (80.0-100.0); MONOCYTES 12.3 %; MPV 7.8 fl. (7.2-11.1); NUCLEATED RBCS 0 /100WBC; PLATELET COUNT* 275 thou/uL (150-400); POLYS 38.8 %; RBC 4.72 mil/uL (4.50-6.00); RDW-CV 13.5 % (10.5-14.5); WBC 7.6 thou/uL (4.0-11.0)
--- NOTE | 2020-03-07 06:09 | NUR ---
PT RECIEVED FROM ED IN ROOM 214. DENIES PAIN. SAT MAINTAINED IN 2L NC. ALERT AND ORIENTED X4. CALL LIGHT WITHIN REACH AND BED IN LOW POSITION. HOURLY ROUNDING DONE FOR PT SAFETY.
[2020-03-07 08:25] LABS: CHOLESTEROL 160 mg/dL (<200); HDL CHOLESTEROL 44 mg/dL (>40); LDL CHOLESTEROL 102 mg/dL (<100); TC:HDL 3.6 Ratio (Not establshd); TRIGLYCERIDE 71 mg/dL (<150); VLDL 14 mg/dL (<40)
[2020-03-07 08:39] LABS: SERUM ASSESSMENT Clear
[2020-03-07] MEDS ORDERED: PROTONIX40 M2 PO (08:45)
[2020-03-07 10:52] VITALS: BP 114/73
--- NOTE | 2020-03-07 13:26 | EKG ---
[place] [address] ELECTROCARDIOGRAM REPORT Name: JOSE UNDERWOOD Room: [address]#: [id number] Admission: 03/06/20 Attend Phys: Michael Crowell, Discharge: 03/07/20 Date of : 59 Date of Service: 03/06/20 1444 Report #: [id number] THIS REPORT FOR: //name// 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
== END 2020-03-07 11:15 | disposition home or self-care (01) ==
LOC: M.ERS 14:42 → M.2W 15:51 → M.TBA-ER 15:51 → M.2W 21:36
PROVIDERS: Emergency Medicine Emergency Medical Services; Registered Nurse; ADMIT Internal Medicine; ATTEND Internal Medicine
DX: R07.89 Other chest pain (principal); K21.9 Gastro-esophageal reflux disease without esophagitis; E11.9 Type 2 diabetes mellitus without complications; I25.10 Atherosclerotic heart disease of native coronary artery without angina pectoris; F41.9 Anxiety disorder, unspecified; I10 Essential (primary) hypertension; I25.2 Old myocardial infarction; Z79.82 Long term (current) use of aspirin; Z79.4 Long term (current) use of insulin; Z20.828 Contact with and (suspected) exposure to other viral communicable diseases

== ENCOUNTER → 2020-05-09 | Outpatient (CLI) | payer OTHER ==
[~2020-05-09] MED LIST changes: +PROTONIX40 M2 PO
== END ==
LOC: M.CT 08:43
DX: J32.9 Chronic sinusitis, unspecified (principal); J34.2 Deviated nasal septum